=== PATIENT | male | born 1930 | race Caucasian/White ===

== ENCOUNTER 2016-07-14 21:44 | Inpatient (IN) | payer OTHER ==
[~2016-07-14] VITALS: Ht 172.7 cm; Wt 81.5 kg
[2016-07-14 22:44] LABS: EOSINOPHIL (%) 1.9 % (0-5); EOSINOPHIL COUNT 0.4 K/uL (0-0.3); HEMATOCRIT 37.2 % (38.0-50.0); IMMATURE GRANULOCYTE (%) 0.6 % (0.0-0.7); IMMATURE GRANULOCYTE COUNT 1.2 K/uL; LYMPHOCYTE COUNT 1.8 K/uL (1.0-2.8); MCH 29.6 PG (29.0-34.0); MCHC 32.5 G/DL (30.0-36.0); MEAN PLAT.VOLUME 11.8 uM^3 (9.0-12.4); MONOCYTE (%) 4.5 % (3-12); MONOCYTE COUNT 0.9 K/uL (0-0.8); NEUTROPHIL (%) 84.2 % (45-76); NEUTROPHIL COUNT 16.9 K/uL (1.8-6.4); PLATELET COUNT 296 K/uL (156-360); RBC DIS.WIDTH-SD 49.2 % (39-53); RED BLOOD COUNT 4.09 M/uL (4.00-5.50); WHITE BLOOD COUNT 20.1 K/uL (4.1-10.2)
[2016-07-14 22:58] LABS: INTER. NORMALIZED RATIO 1.1; PROTHROMBIN TIME 11.4 (9.2-11.2); PTT 27.5 (25-32)
[2016-07-14 23:02] LABS: CHLORIDE 106 mEq/L (99-109); POTASSIUM 4.8 mEq/L (3.7-5.4); SODIUM 141 mEq/L (136-147)
[2016-07-14 23:04] LABS: GLUCOSE 145 mg/dL (70-99)
[2016-07-14 23:05] LABS: ANION GAP 13 MEQ/L (2-14)
[2016-07-14 23:07] LABS: GFR ESTIMATE (CALCULATED) > 59 mL/min/
[2016-07-14 23:08] LABS: UREA NITROGEN (BUN) 13 mg/dL (9-23)
[2016-07-15] MEDS ORDERED: CLONIDINE HCL0.1 MG PO (01:11)
[2016-07-15] MEDS ORDERED: FINASTERIDE5 MG PO (01:12)
[2016-07-15] MEDS ORDERED: LISINOPRIL20 MG PO (01:12)
[2016-07-15] MEDS ORDERED: COLACE100 MG PO (01:12)
[2016-07-15] MEDS ORDERED: DEPAKOTE SPRIN125 MG PO (01:13)
[2016-07-15] MEDS ORDERED: MELATIN3 MG PO (01:13)
[2016-07-15] MEDS ORDERED: PROTONIX40 MG PO (01:14)
[2016-07-15] MEDS ORDERED: SEROQUEL50 MG PO (01:14)
[2016-07-15] MEDS ORDERED: TAMSULOSIN HCL0.4 MG PO (01:14)
[2016-07-15] MEDS ORDERED: TYLENOL REGULA325 MG PO (01:14)
[2016-07-15] MEDS ORDERED: FLEET ENEMA-AD118 ML PR (01:15)
[2016-07-15] MEDS ORDERED: DULCOLAX10 MG PR (01:15)
[2016-07-15] MEDS ORDERED: PHILLIPS'400 MG/5 M PO (01:15)
[2016-07-15] MEDS ORDERED: ASPIRIN81 M2 PO (01:16)
[2016-07-15] MEDS ORDERED: FUROSEMIDE20 MG PO (01:16)
[2016-07-15 03:11] VITALS: BP 90/53
[2016-07-15 03:30] VITALS: BP 90/53
[2016-07-15 04:55] LABS: METH RESISTANT S AUREUS PCR NEGATIVE (NEGATIVE)
[2016-07-15 04:56] LABS: PROBE CHECK PASS; SPECIMEN PROCESSING CONTROL PASS
[2016-07-15 08:26] VITALS: BP 106/59
[2016-07-15 11:45] VITALS: BP 112/69
[2016-07-15 15:11] LABS: POINT-OF-CARE METER ID UU13113675
[2016-07-16 00:07] VITALS: BP 110/58
[2016-07-16 04:00] VITALS: BP 114/55
[2016-07-16 06:02] LABS: HEMATOCRIT 32.9 % (38.0-50.0); MCV 93.2 FL (86-99)
[2016-07-16 08:02] VITALS: BP 121/76
[2016-07-16 09:05] LABS: ADD MIUA? YES; BILIRUBIN SMALL; BLOOD LARGE; GLUCOSE (STRIP) NEGATIVE; KETONES TRACE; LEUKOCYTES SMALL; NITRITE NEGATIVE; PROTEIN (STRIP) >=300; SPECIFIC GRAVITY 1.029 (1.000-1.030); UROBILINOGEN 0.2 MG/DL (0.2-1.0)
[2016-07-16 09:07] LABS: COLOR DK YELLOW ((YELLOW))
[2016-07-16 09:36] LABS: CASTS PRESENT /LPF; CRYSTALS PRESENT; PATHOLOGICAL CAST PRESENT; RED BLOOD CELLS TNTC /HPF (0-5); SMALL ROUND CELL PRESENT; YEAST-LIKE CELL PRESENT
[2016-07-16 09:55] LABS: BACTERIA 1+ /HPF; EPITHELIAL CELLS 1+ /HPF; HYALINE CASTS RARE /LPF; MUCUS NONE SEEN /LPF; WHITE BLOOD CELLS 30-40 /HPF (0-5)
[2016-07-16 09:56] LABS: CALCIUM OXALATE CRYSTALS RARE /HPF; WAXY CASTS RARE /LPF
[2016-07-16 11:45] VITALS: BP 161/83
[2016-07-16 16:07] VITALS: BP 129/74
[2016-07-16 23:51] VITALS: BP 102/51
[2016-07-17 06:21] LABS: EOSINOPHIL (%) 7.2 % (0-5); EOSINOPHIL COUNT 1.1 K/uL (0-0.3); IMMATURE GRANULOCYTE (%) 0.5 % (0.0-0.7); IMMATURE GRANULOCYTE COUNT 0.1 K/uL; LYMPHOCYTE COUNT 1.8 K/uL (1.0-2.8); MCH 29.4 PG (29.0-34.0); MCHC 31.7 G/DL (30.0-36.0); MCV 92.9 FL (86-99); MONOCYTE (%) 7.4 % (3-12); MONOCYTE COUNT 1.1 K/uL (0-0.8); NEUTROPHIL (%) 72.4 % (45-76); NEUTROPHIL COUNT 10.6 K/uL (1.8-6.4); RBC DIS.WIDTH-CV 15.4 % (11.8-14.6); RBC DIS.WIDTH-SD 52.4 % (39-53); WHITE BLOOD COUNT 14.6 K/uL (4.1-10.2)
[2016-07-17 06:22] LABS: RED BLOOD COUNT 3.23 M/uL (4.00-5.50)
[2016-07-17 06:35] LABS: ANION GAP 8 MEQ/L (2-14); CHLORIDE 108 MEQ/L (99-109); GFR ESTIMATE (CALCULATED) > 59 mL/min/; GLUCOSE 139 mg/dL (70-99); POTASSIUM 4.8 MEQ/L (3.7-5.4); SAMPLE HEMOLYSIS CHECK 0; SAMPLE ICTERIC CHECK 0; SAMPLE LIPEMIA CHECK 0; SODIUM 140 MEQ/L (136-147)
[2016-07-17 06:41] LABS: UREA NITROGEN (BUN) 23 mg/dL (9-23)
[2016-07-17 07:14] LABS: HEMATOLOGY COMMENT 1 SMEAR COMPATIBLE; MEAN PLAT.VOLUME 12.3 uM^3 (9.0-12.4); PLAT.SUFFICIENCY ADEQUATE; USER ID CCL
[2016-07-17 07:31] LABS: PLATELET COUNT 195 K/uL (156-360)
[2016-07-17 07:42] VITALS: BP 127/58
[2016-07-17 16:12] VITALS: BP 147/67
[2016-07-18 00:18] VITALS: BP 121/57
[2016-07-18 05:32] LABS: HEMATOCRIT 29.8 % (38.0-50.0); MCH 29.7 PG (29.0-34.0); MCHC 31.5 G/DL (30.0-36.0); MEAN PLAT.VOLUME 12.3 uM^3 (9.0-12.4); PLATELET COUNT 213 K/uL (156-360); RBC DIS.WIDTH-CV 15.3 % (11.8-14.6); RBC DIS.WIDTH-SD 52.2 % (39-53); RED BLOOD COUNT 3.17 M/uL (4.00-5.50); WHITE BLOOD COUNT 11.7 K/uL (4.1-10.2)
[2016-07-18 05:51] LABS: EOSINOPHIL (%) 6.9 % (0-5); EOSINOPHIL COUNT 0.8 K/uL (0-0.3); IMMATURE GRANULOCYTE (%) 0.3 % (0.0-0.7); LYMPHOCYTE COUNT 1.7 K/uL (1.0-2.8); MONOCYTE (%) 7.4 % (3-12); MONOCYTE COUNT 0.9 K/uL (0-0.8); NEUTROPHIL (%) 70.6 % (45-76); NEUTROPHIL COUNT 8.3 K/uL (1.8-6.4)
[2016-07-18 06:06] LABS: ANION GAP 7 MEQ/L (2-14); CHLORIDE 108 MEQ/L (99-109); GFR ESTIMATE (CALCULATED) > 59 mL/min/; GLUCOSE 109 mg/dL (70-99); POTASSIUM 4.4 MEQ/L (3.7-5.4); SAMPLE HEMOLYSIS CHECK 0; SAMPLE ICTERIC CHECK 0; SAMPLE LIPEMIA CHECK 0; SODIUM 140 MEQ/L (136-147); UREA NITROGEN (BUN) 19 mg/dL (9-23)
[2016-07-18 08:45] VITALS: BP 144/72
[2016-07-18 15:52] VITALS: BP 122/70
[2016-07-19 00:07] VITALS: BP 130/70
[2016-07-19 04:12] VITALS: BP 134/68
[2016-07-19 07:42] VITALS: BP 120/57
[2016-07-19 09:08] LABS: EOSINOPHIL (%) 6.4 % (0-5); EOSINOPHIL COUNT 0.7 K/uL (0-0.3); IMMATURE GRANULOCYTE (%) 0.4 % (0.0-0.7); LYMPHOCYTE COUNT 1.5 K/uL (1.0-2.8); MCH 29.5 PG (29.0-34.0); MCHC 31.3 G/DL (30.0-36.0); MCV 94.4 FL (86-99); MONOCYTE (%) 8.7 % (3-12); MONOCYTE COUNT 0.9 K/uL (0-0.8); NEUTROPHIL (%) 70.2 % (45-76); NEUTROPHIL COUNT 7.6 K/uL (1.8-6.4); PLATELET COUNT 250 K/uL (156-360); RBC DIS.WIDTH-CV 15.7 % (11.8-14.6); RBC DIS.WIDTH-SD 52.7 % (39-53); RED BLOOD COUNT 3.39 M/uL (4.00-5.50); WHITE BLOOD COUNT 10.8 K/uL (4.1-10.2)
[2016-07-19 09:31] LABS: ANION GAP 7 MEQ/L (2-14); CHLORIDE 108 MEQ/L (99-109); GFR ESTIMATE (CALCULATED) > 59 mL/min/; GLUCOSE 90 mg/dL (70-99); POTASSIUM 4.5 MEQ/L (3.7-5.4); SAMPLE HEMOLYSIS CHECK 0; SAMPLE ICTERIC CHECK 0; SAMPLE LIPEMIA CHECK 0; SODIUM 141 MEQ/L (136-147); UREA NITROGEN (BUN) 14 mg/dL (9-23)
[2016-07-19 16:26] VITALS: BP 153/67
[2016-07-20] VITALS: BP 136/68; BP 36/68
[2016-07-20 08:02] VITALS: BP 137/60
[2016-07-20 08:29] LABS: EOSINOPHIL (%) 4.9 % (0-5); EOSINOPHIL COUNT 0.5 K/uL (0-0.3); HEMATOCRIT 32.4 % (38.0-50.0); IMMATURE GRANULOCYTE (%) 0.3 % (0.0-0.7); LYMPHOCYTE COUNT 1.8 K/uL (1.0-2.8); MCH 28.8 PG (29.0-34.0); MCHC 31.2 G/DL (30.0-36.0); MCV 92.3 FL (86-99); MEAN PLAT.VOLUME 11.4 uM^3 (9.0-12.4); MONOCYTE (%) 9.2 % (3-12); NEUTROPHIL (%) 68.9 % (45-76); NEUTROPHIL COUNT 7.4 K/uL (1.8-6.4); PLATELET COUNT 294 K/uL (156-360); RBC DIS.WIDTH-CV 15.3 % (11.8-14.6); RED BLOOD COUNT 3.51 M/uL (4.00-5.50); WHITE BLOOD COUNT 10.8 K/uL (4.1-10.2)
[2016-07-20 08:55] LABS: ANION GAP 10 MEQ/L (2-14); CHLORIDE 106 MEQ/L (99-109); GFR ESTIMATE (CALCULATED) > 59 mL/min/; GLUCOSE 96 mg/dL (70-99); POTASSIUM 4.6 MEQ/L (3.7-5.4); SAMPLE HEMOLYSIS CHECK 0; SAMPLE ICTERIC CHECK 0; SAMPLE LIPEMIA CHECK 0; SODIUM 142 MEQ/L (136-147); UREA NITROGEN (BUN) 13 mg/dL (9-23)
[2016-07-20 15:19] VITALS: BP 190/81
[2016-07-21] VITALS: BP 162/83
[2016-07-21 07:42] VITALS: BP 197/91
[2016-07-21 09:37] LABS: EOSINOPHIL (%) 3.2 % (0-5); EOSINOPHIL COUNT 0.4 K/uL (0-0.3); HEMATOCRIT 34.5 % (38.0-50.0); IMMATURE GRANULOCYTE (%) 0.4 % (0.0-0.7); IMMATURE GRANULOCYTE COUNT 0.5 K/uL; MCH 29.7 PG (29.0-34.0); MCHC 32.8 G/DL (30.0-36.0); MCV 90.8 FL (86-99); MEAN PLAT.VOLUME 11.1 uM^3 (9.0-12.4); MONOCYTE COUNT 1.3 K/uL (0-0.8); NEUTROPHIL (%) 70.7 % (45-76); PLATELET COUNT 321 K/uL (156-360); RBC DIS.WIDTH-CV 15.3 % (11.8-14.6); RBC DIS.WIDTH-SD 48.1 % (39-53); WHITE BLOOD COUNT 12.7 K/uL (4.1-10.2)
[2016-07-21 10:00] LABS: CHLORIDE 108 mEq/L (99-109); POTASSIUM 4.2 mEq/L (3.7-5.4); SODIUM 142 mEq/L (136-147)
[2016-07-21 10:02] LABS: GLUCOSE 139 mg/dL (70-99)
[2016-07-21 10:03] LABS: ANION GAP 15 MEQ/L (2-14)
[2016-07-21 10:06] LABS: GFR ESTIMATE (CALCULATED) > 59 mL/min/
[2016-07-21 10:07] LABS: UREA NITROGEN (BUN) 15 mg/dL (9-23)
[2016-07-21 11:35] VITALS: BP 121/58
[2016-07-21 15:57] VITALS: BP 172/72
[2016-07-22 01:13] VITALS: BP 160/82
[2016-07-22 05:46] LABS: EOSINOPHIL (%) 1.9 % (0-5); EOSINOPHIL COUNT 0.3 K/uL (0-0.3); HEMATOCRIT 33.7 % (38.0-50.0); IMMATURE GRANULOCYTE (%) 0.4 % (0.0-0.7); IMMATURE GRANULOCYTE COUNT 0.1 K/uL; LYMPHOCYTE COUNT 1.6 K/uL (1.0-2.8); MCH 29.1 PG (29.0-34.0); MCHC 32.3 G/DL (30.0-36.0); MCV 90.1 FL (86-99); MEAN PLAT.VOLUME 11.2 uM^3 (9.0-12.4); MONOCYTE (%) 8.3 % (3-12); MONOCYTE COUNT 1.1 K/uL (0-0.8); NEUTROPHIL (%) 77.6 % (45-76); NEUTROPHIL COUNT 10.5 K/uL (1.8-6.4); PLATELET COUNT 323 K/uL (156-360); RBC DIS.WIDTH-CV 15.4 % (11.8-14.6); RBC DIS.WIDTH-SD 49.6 % (39-53); RED BLOOD COUNT 3.74 M/uL (4.00-5.50); WHITE BLOOD COUNT 13.5 K/uL (4.1-10.2)
[2016-07-22 06:10] LABS: ANION GAP 13 MEQ/L (2-14); CHLORIDE 106 MEQ/L (99-109); GFR ESTIMATE (CALCULATED) > 59 mL/min/; GLUCOSE 133 mg/dL (70-99); POTASSIUM 3.8 MEQ/L (3.7-5.4); SAMPLE HEMOLYSIS CHECK 0; SAMPLE ICTERIC CHECK 1; SAMPLE LIPEMIA CHECK 0; SODIUM 143 MEQ/L (136-147); UREA NITROGEN (BUN) 13 mg/dL (9-23)
[2016-07-22 08:00] VITALS: BP 148/68
[2016-07-22 16:14] VITALS: BP 130/72
[2016-07-22 20:00] VITALS: BP 142/71
[2016-07-22 23:18] VITALS: BP 133/74
[2016-07-23 05:24] LABS: EOSINOPHIL (%) 2.8 % (0-5); EOSINOPHIL COUNT 0.3 K/uL (0-0.3); HEMATOCRIT 33.6 % (38.0-50.0); IMMATURE GRANULOCYTE (%) 0.6 % (0.0-0.7); IMMATURE GRANULOCYTE COUNT 0.7 K/uL; LYMPHOCYTE COUNT 1.9 K/uL (1.0-2.8); MCH 29.5 PG (29.0-34.0); MCHC 32.7 G/DL (30.0-36.0); MCV 90.1 FL (86-99); MEAN PLAT.VOLUME 11.1 uM^3 (9.0-12.4); MONOCYTE (%) 7.9 % (3-12); MONOCYTE COUNT 0.9 K/uL (0-0.8); NEUTROPHIL COUNT 8.2 K/uL (1.8-6.4); PLATELET COUNT 361 K/uL (156-360); RBC DIS.WIDTH-CV 15.6 % (11.8-14.6); RBC DIS.WIDTH-SD 49.1 % (39-53); RED BLOOD COUNT 3.73 M/uL (4.00-5.50); WHITE BLOOD COUNT 11.4 K/uL (4.1-10.2)
[2016-07-23 05:36] LABS: CHLORIDE 108 mEq/L (99-109); POTASSIUM 3.6 mEq/L (3.7-5.4); SODIUM 142 mEq/L (136-147)
[2016-07-23 05:37] LABS: GLUCOSE 130 mg/dL (70-99)
[2016-07-23 05:41] LABS: GFR ESTIMATE (CALCULATED) > 59 mL/min/
[2016-07-23 05:42] LABS: UREA NITROGEN (BUN) 12 mg/dL (9-23)
[2016-07-23 06:19] LABS: ANION GAP 13 MEQ/L (2-14)
[2016-07-23 07:37] VITALS: BP 155/84
[2016-07-23 15:27] VITALS: BP 164/68
[2016-07-24] VITALS: BP 129/83
[2016-07-24 06:13] LABS: EOSINOPHIL (%) 3.1 % (0-5); EOSINOPHIL COUNT 0.3 K/uL (0-0.3); HEMATOCRIT 33.8 % (38.0-50.0); IMMATURE GRANULOCYTE (%) 0.6 % (0.0-0.7); IMMATURE GRANULOCYTE COUNT 0.1 K/uL; LYMPHOCYTE COUNT 1.8 K/uL (1.0-2.8); MCH 29.6 PG (29.0-34.0); MCHC 32.8 G/DL (30.0-36.0); MCV 90.1 FL (86-99); MEAN PLAT.VOLUME 11.7 uM^3 (9.0-12.4); MONOCYTE (%) 7.7 % (3-12); MONOCYTE COUNT 0.8 K/uL (0-0.8); NEUTROPHIL (%) 71.5 % (45-76); NEUTROPHIL COUNT 7.5 K/uL (1.8-6.4); PLATELET COUNT 419 K/uL (156-360); RBC DIS.WIDTH-SD 50.5 % (39-53); RED BLOOD COUNT 3.75 M/uL (4.00-5.50); WHITE BLOOD COUNT 10.5 K/uL (4.1-10.2)
[2016-07-24 06:52] LABS: ALKALINE PHOSPHATASE 133 IU/L (3-129); ANION GAP 12 MEQ/L (2-14); CHLORIDE 106 MEQ/L (99-109); GFR ESTIMATE (CALCULATED) > 59 mL/min/; GLUCOSE 130 mg/dL (70-99); POTASSIUM 3.4 MEQ/L (3.7-5.4); SAMPLE HEMOLYSIS CHECK 0; SAMPLE ICTERIC CHECK 1; SAMPLE LIPEMIA CHECK 0; SODIUM 143 MEQ/L (136-147); TOTAL BILIRUBIN 3.9 MG/DL (0.0-1.0); UREA NITROGEN (BUN) 12 mg/dL (9-23)
[2016-07-24 07:54] VITALS: BP 141/97
[2016-07-24 15:32] VITALS: BP 135/62
[2016-07-24 20:01] VITALS: BP 139/65
[2016-07-24 23:37] VITALS: BP 167/83
[2016-07-25 07:53] VITALS: BP 162/73
[2016-07-25 10:43] LABS: ANION GAP 8 MEQ/L (2-14); CHLORIDE 106 MEQ/L (99-109); GFR ESTIMATE (CALCULATED) > 59 mL/min/; GLUCOSE 174 mg/dL (70-99); SAMPLE HEMOLYSIS CHECK 0; SAMPLE ICTERIC CHECK 0; SAMPLE LIPEMIA CHECK 0; SODIUM 141 MEQ/L (136-147); UREA NITROGEN (BUN) 13 mg/dL (9-23)
[2016-07-25 16:12] VITALS: BP 162/82
[2016-07-25 23:22] VITALS: BP 141/96
[2016-07-26 07:34] VITALS: BP 178/84
[2016-07-26 07:40] LABS: HEMATOCRIT 33.3 % (38.0-50.0); MCH 29.7 PG (29.0-34.0); MCHC 32.4 G/DL (30.0-36.0); MCV 91.5 FL (86-99); MEAN PLAT.VOLUME 11.8 uM^3 (9.0-12.4); PLATELET COUNT 439 K/uL (156-360); RBC DIS.WIDTH-CV 16.5 % (11.8-14.6); RBC DIS.WIDTH-SD 52.9 % (39-53); RED BLOOD COUNT 3.64 M/uL (4.00-5.50); WHITE BLOOD COUNT 12.4 K/uL (4.1-10.2)
[2016-07-26 08:01] LABS: ANION GAP 12 MEQ/L (2-14); CHLORIDE 105 MEQ/L (99-109); GFR ESTIMATE (CALCULATED) > 59 mL/min/; GLUCOSE 152 mg/dL (70-99); POTASSIUM 4.1 MEQ/L (3.7-5.4); SAMPLE HEMOLYSIS CHECK 0; SAMPLE ICTERIC CHECK 1; SAMPLE LIPEMIA CHECK 0; SODIUM 142 MEQ/L (136-147); UREA NITROGEN (BUN) 13 mg/dL (9-23)
[2016-07-26 08:10] LABS: EOSINOPHIL (%) 1.9 % (0-5); EOSINOPHIL COUNT 0.2 K/uL (0-0.3); IMMATURE GRANULOCYTE (%) 0.9 % (0.0-0.7); IMMATURE GRANULOCYTE COUNT 0.1 K/uL; MONOCYTE (%) 8.9 % (3-12); MONOCYTE COUNT 1.1 K/uL (0-0.8); NEUTROPHIL (%) 72.3 % (45-76)
[2016-07-26 15:46] VITALS: BP 163/91
[2016-07-26 23:14] VITALS: BP 165/74
[2016-07-27 04:30] VITALS: BP 169/73
[2016-07-27 07:36] VITALS: BP 139/65
[2016-07-28 00:26] VITALS: BP 142/78
[2016-07-28 08:08] VITALS: BP 166/68
[2016-07-28 23:56] VITALS: BP 152/54
[2016-07-29 00:01] VITALS: BP 139/88
[2016-07-29 08:00] VITALS: BP 142/83
[2016-07-29] MEDS ORDERED: LOVENOX40 MG/0.4 SC (13:36)
[2016-07-29] MEDS ORDERED: QUETIAPINE FUMA25 MG PO (13:37)
[2016-07-29] MEDS ORDERED: OXYCODONE HCL5 MG PO (13:38)
[2016-07-29] MEDS ORDERED: THERAGRAN1 TABLET PO (13:38)
== END 2016-07-29 15:33 | DRG 481 ==
LOC: EME 21:44 → 3EAST 07-15 01:30 → EDOF 07-15 01:30 → 3EAST 07-15 02:52
PROVIDERS: Emergency Medicine; Family Medicine; Orthopaedic Surgery; Physician Assistant Surgical
PROC: 0QS706Z Reposition Left Upper Femur with Intramedullary Internal Fixation Device, Open Approach (ICD-10-PCS; principal; 2016-07-15)
DX: S72.142A Displaced intertrochanteric fracture of left femur, initial encounter for closed fracture (principal); F05 Delirium due to known physiological condition; L89.302 Pressure ulcer of unspecified buttock, stage 2; I95.9 Hypotension, unspecified; I27.2 Other secondary pulmonary hypertension; J44.9 Chronic obstructive pulmonary disease, unspecified; I48.2 Chronic atrial fibrillation; G30.9 Alzheimer's disease, unspecified; S72.22XA Displaced subtrochanteric fracture of left femur, initial encounter for closed fracture; T14.8 Other injury of unspecified body region; W18.30XA Fall on same level, unspecified, initial encounter; Y92.129 Unspecified place in nursing home as the place of occurrence of the external cause; E11.9 Type 2 diabetes mellitus without complications; I10 Essential (primary) hypertension; Z86.73 Personal history of transient ischemic attack (TIA), and cerebral infarction without residual deficits; Z95.1 Presence of aortocoronary bypass graft; M76.892 Other specified enthesopathies of left lower limb, excluding foot; M47.9 Spondylosis, unspecified; D64.9 Anemia, unspecified; M16.0 Bilateral primary osteoarthritis of hip; F41.9 Anxiety disorder, unspecified; R45.1 Restlessness and agitation; I25.10 Atherosclerotic heart disease of native coronary artery without angina pectoris; N40.1 Benign prostatic hyperplasia with lower urinary tract symptoms; F02.81 Dementia in other diseases classified elsewhere, unspecified severity, with behavioral disturbance; S81.032A Puncture wound without foreign body, left knee, initial encounter; L89.610 Pressure ulcer of right heel, unstageable; S71.101A Unspecified open wound, right thigh, initial encounter; Z93.59 Other cystostomy status; E87.6 Hypokalemia; L89.612 Pressure ulcer of right heel, stage 2
CPT/HCPCS: 70450; 71010; 72192; 73502; 73560; 76000; 80048; 80053; 80164; 81003; 82948; 85014; 85018; 85025; 85610; 85730; 86850; 86900; 86901; 87081; 87641; 93005; 94799; 97530 GO; 97530 GP; 99281; 99285; C1755; J0690; J1170; J1630; J1650; J2060; J2270; J2405; J7030; J7120